=== PATIENT | male | born 1945 | race Caucasian/White ===

== ENCOUNTER 2024-07-06 19:32 | Emergency (ER) | payer MEDICARE ==
[2024-07-06 19:40] VITALS: TEMP 97.9
[2024-07-06 20:18] LABS: Basophils # (A) 0.03 10*3/uL (0.00-0.10); Basophils % (A) 0.4 %; Eosinophils % (A) 1.2 %; HCT 45.6 % (39.6-50.0); HGB 15.5 g/dL (13.0-17.0); Lymphocytes % (A) 6.2 %; MCH 31.6 pg (27.0-32.0); MCV 93.1 fL (80.0-97.0); Mean Platelet Volume 9.7 fL (9.5-12.2); Monocytes # (A) 0.64 10*3/uL (0.20-1.00); Monocytes % (A) 7.9 %; Neutrophils # (A) 6.84 10*3/uL (1.80-7.70); Neutrophils % (A) 84.1 %; Platelet Count 269 10*3/uL (140-440); RDW 13.4 % (11.5-14.5); WBC 8.13 10*3/uL (4.50-10.00)
[2024-07-06 20:28] LABS: ALT 20 U/L (4-49); AST 27 U/L (17-59); African American GFR (CKD) >90 (>60 ml/min/1.73 sqM); Albumin 4.8 g/dL (3.5-5.0); Alkaline Phosphatase 97 U/L (38-126); Anion Gap 15 mmol/L; Blood Urea Nitrogen 15 mg/dL (9-20); Calcium 9.2 mg/dL (8.4-10.2); Carbon Dioxide 22 mmol/L (22-30); Chloride 101 mmol/L (98-107); Creatine Kinase 79 U/L (55-170); Glucose 99 mg/dL (74-99); Non-African American GFR(CKD) 89 (>60 ml/min/1.73 sqM); Potassium 4.1 mmol/L (3.5-5.1); Sodium 138 mmol/L (137-145); Total Bilirubin 0.8 mg/dL (0.2-1.3); Total Protein 7.7 g/dL (6.3-8.2)
[2024-07-06 20:32] LABS: INR 0.9 (<1.2); Partial Thromboplastin Time 22.9 sec (22.0-30.0); Prothrombin Time 10.3 sec (10.0-12.5)
[2024-07-06] MEDS: SODIUM CHLORIDE 0.9% 1,000 ML IV STA (20:35)
--- NOTE | 2024-07-06 20:49 | CT ---
EXAMINATION TYPE: CT brain wo con DATE OF EXAM: 07/06/2024 8:37 PM COMPARISON: None CLINICAL INDICATION: Male, 79 years old with history of Neuro deficit, acute, stroke suspected, Left side weakness, onset 1800. No symptoms at this time. TECHNIQUE: Brain: Axial CT images of the brain were obtained with coronal and sagittal reformats created and rev iewed. Contrast used: None. Oral contrast used: None. CT DLP: 1702.8 mGycm, Automated exposure control for dose reduction was used. FINDINGS: Brain: Extra-axial spaces: No abnormal extra-axial fluid collections. Ventricular system: Dilatation in proportion to cerebral atrophy. 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 Cerebral atrophy. No acute intraparenchymal hemorrhage or mass effect. The remainder of the luna-white junctions are w ell differentiated. Scattered hypoattenuating areas are seen within the white matter. Cerebellum: Unremarkable. Mass effect: No evidence of midline shift. Intracranial vasculature: Atherosclerotic calcifications of the intracranial vessels. Soft tissues: Normal. Calvarium/osseous structures: No depressed skull fracture. Paranasal sinuses and mastoid air cells: Mild scattered paranasal sinus disease. Visualized orbits: Bilateral aphakia IMPRESSION: 1. No acute intracranial process. 2. Remote left temporal lobe injury. 3. nonspecific white matter changes likely secondary to chronic microangiopathy. [facility], , 07/06/2024 8:47 PM
--- NOTE | 2024-07-06 21:05 | CT ---
EXAMINATION TYPE: CT angio head neck DATE OF EXAM: 07/06/2024 8:39 PM COMPARISON: CT brain same date. CLINICAL INDICATION: Male, 79 years old with history of Neuro deficit, acute, stroke suspected; PHH, Left side weakness, onset 1800. No symptoms at this time. TECHNIQUE: Axially acquired helical CT angiogram of the head and neck was obtained with contrast. Axi al images are supplemented with 3D reconstructions and MIP images which were post-processed at an in dependent workstation. NASCET criteria used. Contrast used:65 ml mL of Isovue 370 with IV Contrast, Oral contrast used: None. CT DLP: 471.8 mGycm, Automated exposure control for dose reduction was used. FINDINGS: CTA HEAD: No evidence of acute intracranial hemorrhage, mass effect, or midline shift. The ventricles, sulci, a nd cisterns are unremarkable. Bilaterally aphakia. Vertebral arteries: The vertebral arteries are patent. Vertebral artery dominance: Codominant Basilar artery: The basilar artery is intact. The basilar artery bifurcation is normal. Internal Carotid arteries: The cervical, petrous, cavernous and supraclinoid segments are normal. KAMAR: Patent with no evidence of aneurysm. 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 MCA: Patent with no evidence of aneurysm. DIRECTOR GRAPHICS: Patent with no evidence of aneurysm. PCOM: Hypoplastic bilaterally. Dural sinuses: Patent. CTA NECK: Right Carotid System: The common carotid artery and external carotid artery are patent. The carotid bifurcation demonstrate s no evidence of hemodynamically significant stenosis. The remaining portions of the internal carotid artery demonstrate normal size without significant narrowing. Left Carotid System: The common carotid artery and external carotid artery are patent. The carotid bifurcation demonstrate s no evidence of hemodynamically significant stenosis. The remaining portions of the internal carotid artery demonstrate normal size without significant narrowing. Vertebral arteries are patent without evidence hemodynamically significant stenosis. There is a three-vessel aortic arch. The origins of the great vessels are patent. No evidence of hemo dynamically significant stenosis. Upper thorax: Mild to moderate centrilobular emphysema changes IMPRESSION: 1. No evidence of dissection of the cervical internal carotid arteries or vertebral arteries. 2. No any evidence of significant stenosis at the carotid bifurcations. 3. No evidence of intracranial high-grade stenosis . 4. 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
--- NOTE | 2024-07-06 21:11 | XR ---
EXAMINATION TYPE: XR chest 2V DATE OF EXAM: 07/06/2024 8:53 PM COMPARISON: None CLINICAL INDICATION: Male, 79 years old with history of altered mental status; TECHNIQUE: XR chest 2V Frontal and lateral views of the chest. FINDINGS: Lungs/Pleura: There is flattening of the diaphragm with increased lucency of the lungs. No evidence o f pneumothorax, pleural effusion or focal consolidation. Pulmonary vascularity: Unremarkable. Heart/mediastinum: Cardiomediastinal silhouette is unremarkable. Musculoskeletal: No acute osseous pathology. IMPRESSION: 1. No acute cardiopulmonary disease process. 2. COPD changes. [facility], , 07/06/2024 9:09 PM
--- NOTE | 2024-07-06 21:52 | ED ---
General Adult HPI - General Chief complaint: Neuro Symptoms/Deficit Stated complaint: L sided heaviness Time Seen by Provider: 07/06/24 19:45 Source: patient, RN notes reviewed, old records reviewed Mode of arrival: ambulatory Limitations: no limitations - History of Present Illness Initial comments: Patient is a 79-year-old male who presents emergency department complaining of left-sided numbness and heaviness of the arm and face as well as some slurred speech. Has had 2 or 3 transient episodes of this since 6 PM. Presents at approximately 1930 for further evaluation. Currently has no symptoms. Presents with his daughter. Has a history of hypertension hyperlipidemia with intermittent compliance with medications. Denies any chest pain or shortness of breath. Has no acute complaints at this time. Is not on blood thinners. Den ies head injury. Presents for further evaluation at this time. - Related Data Allergies Allergy/AdvReac Type Severity Reaction Status Date / Time Sulfa (Sulfonamide Allergy Anaphylaxis Verified 07/06/24 19:34 Antibiotics) Review of Systems ROS Statement: Those systems with pertinent positive or pertinent negative responses have been documented in the HPI. Review of Systems: CONST: Denies fever EYES: Denies blurry vision ENT: Denies nasal congestion C/V: Denies Chest pain RESP: Denies shortness of breath GI: Denies abdominal pain : Denies dysuria SKIN: Denies rash. MSK: Denies joint pain. NEURO: Denies headache ROS Other: All systems not noted in ROS Statement are negative. Past Medical History Past Medical History: Cancer, Hyperlipidemia, Hypertension Additional Past Medical History / Comment(s): prostate CA History of Any Multi-Drug Resistant Organisms: None Reported Past Surgical History: Prostate Surgery Past Psychological History: No Psychological Hx Reported Smoking Status: Current every day smoker Past Alcohol Use History: None Reported Past Drug Use History: None Reported General Exam - General Exam Comments Initial Comments: General: Appears in no acute distress. HEAD: Normal with no signs of head trauma. EYES: PERRLA, EOMI, conjunctiva normal, no discharge. Pupils are 2 mm and equal bilaterally. ENT: Hearing grossly intact, normal oropharynx. RESPIRATORY: Clear breath sounds bilaterally. No wheezes, rales, or rhonchi. C/V: Regular rate and rhythm. S1 and S2 auscultated, no edema, peripheral pulses 2+ and intact throughout ABD: Abd is soft, nontender, nondistended EXT: Normal range of motion, no obvious deformity SKIN: No rashes or lesions observed on exposed skin. NEURO: Alert and oriented x 4. NIH of 0. GCS of 15. No focal deficits currently. Limitations: no limitations Course Vital Signs 07/06/24 07/06/24 07/06/24 19:35 20:35 21:00 Temperature 97.9 F Pulse Rate 104 H 91 90 Respiratory 18 18 16 Rate Blood Pressure 194/113 162/94 179/90 O2 Sat by Pulse 95 100 97 Oximetry Medical Decision Making - Medical Decision Making Was pt. sent in by a medical professional or institution (, PA, FLAT BREAKDOWN PROCESSOR, urgent care, hospital, or prison...) When possible be specific @ -No Did you speak to anyone other than the patient for history (EMS, parent, family, police, friend...)? What history was obtained from this source @ -Patient's daughter corroborated the story and did witness the episodes. Did you review nursing and triage notes (agree or disagree)? Why? @ -I reviewed and agree with nursing and triage notes Were old charts reviewed (outside hosp., previous admission, EMS record, old EKG, old radiological studies, urgent care reports/EKG's, prison records)? Report findings @ -No old charts were reviewed Differential Diagnosis (chest pain, altered mental status, abdominal pain women, abdominal pain men, vaginal bleeding, weakness, fever, dyspnea, syncope, headache, dizziness, GI bleed, back pain, seizure, CVA, palpatations, mental health, musculoskeletal)? @ -Differential CVA Ischemic stroke, hemorrhagic stroke, brain tumor, atypical migraine, Wernicke's encephalopathy, seizure, multiple sclerosis, meningitis, encephalitis, hypoglycemia, Guillain-Mendez, electrolytes disturbance, myasthenia gravis.... This is not meant to be an all-inclusive list EKG interpreted by me (3pts min.). @ -As above X-rays interpreted by me (1pt min.). @ -Chest x-ray reveals no obvious acute cardiopulmonary process. CT interpreted by me (1pt min.). @ -CT brain reveals no obvious acute intracranial process. CT angiogram of the head and neck reveals no obvious acute carotid abnormality. Patient does have a saccular aneurysm measuring 3 x 3 x 3 mm of the right anterior communicating artery. No evidence of other large vessel occlusion or abnormality. U/S interpreted by me (1pt. min.). @ -None done What testing was considered but not performed or refused? (CT, X-rays, U/S, labs)? Why? @ -None What meds were considered but not given or refused? Why? @ -Considered tenecteplase but as patient has waxing waning symptoms, is currently symptom-free, and originally presented with no symptoms, risks far outweigh the benefits. Dr. Kruger of neurocritical care agreed. Did you discuss the management of the patient with other professionals (professionals i.e. , PA, FLAT BREAKDOWN PROCESSOR, lab, RT, psych nurse, social secretary, mineral engineer, teacher, driver's license reviewing officer, case management assistant)? Give summary @ -Discussed the patient with Dr. Kruger of neurocritical care after imaging had returned and after patient had a transient episode of his left upper extremity weakness with drift as well as dysarthria that was transient for approximately 3 minutes. We discussed the images and the symptoms and as he is currently symptom-free he recommended transfer to [facility]. Recommended aspirin and Plavix loading. Was in agreement with no tenecteplase at this time. Recommended permissive hypertension. I reached out to [facility] and patient was accepted by Dr. Phillips. Was smoking cessation discussed for >3mins.? @ -No Was critical care preformed (if so, how long)? @ -Yes, 36 minutes Were there social determinants of health that impacted care today? How? (Homelessness, low income, unemployed, alcoholism, drug addiction, transp ortation, low edu. Level, literacy, decrease access to med. care, longterm, rehab)? @ -No Was there de-escalation of care discussed even if they declined (Discuss DNR or withdrawal of care, Hospice)? DNR status @ -No What co-morbidities impacted this encounter? (DM, HTN, Smoking, COPD, CAD, Cancer, CVA, ARF, Chemo, Hep., AIDS, mental health diagnosis, sleep apnea, morbid obesity)? @ -Hypertension, hyperlipidemia Was patient admitted / discharged? Hospital course, mention meds given and route, prescriptions, significant lab abnormalities, going to OR and other pertinent info. @ -Based on the patient's presentation and physical exam, presents emergency department complaining of strokelike symptoms. Currently symptom-free. NIH of 0. Symptoms originally began at 6 PM this evening. I evaluated the patient shortly after 730pm. NIH is currently 0. Patient is not a tenecteplase candidate as NIH is 0 and risks outweigh the benefits. Patient has not made a code stroke however we will work the patient up as a stroke patient. He was in agreement this plan. Vitals remarkable for mild hypertension. CT imaging returned remarkable for a right 3 x 3 x 3 mm saccular aneurysm of the right KAMAR but no other obvious acute intracranial process. Chest x-ray unremarkable. Laboratory studies are all within acceptable limits. As I was reaching out to Dr. Kruger of neurocritical care to discuss the findings of the CT imaging as well as his symptoms, I updated the patient and he was having one of his transient episodes that lasted for approximately 1 minute prior to my arrival and 1 to 2 minutes while he was performing an NIH stroke scale. Patient had an NIH of approximately 3 for numbness of the left upper extremity, left upper extremity weakness with drift, as well as some mild dysar thria. However all symptoms resolved. Once again become an NIH of 0. I discussed this with Dr. Kruger and he recommends transfer to [facility] for closer observation. Recommended loading with aspirin and Plavix. Was in agreement with no tenecteplase at this time. Once again, NIH of 0 currently. I discussed this with the patient and he was in agreement the plan. Was in agreement with permissive hypertension for now. I reached out to [facility] and patient was accepted by Dr. Phillips. Patient transferred in stable condition. Undiagnosed new problem with uncertain prognosis? @ -No Drug Therapy requiring intensive monitoring for toxicity (Heparin, Nitro, Insulin, Cardizem)? @ -No Were any procedures done? @ -No Diagnosis/symptom? @ -Transient neurological symptoms, suspecting TIAs, right KAMAR aneurysm Acute, or Chronic, or Acute on Chronic? @ -Acute Uncomplicated (without systemic symptoms) or Complicated (systemic symptoms)? @ -Complicated Side effects of treatment? @ -No Exacerbation, Progression, or Severe Exacerbation? @ -No Poses a threat to life or bodily function? How? (Chest pain, USA, ND, pneumonia, PE, COPD, DKA, ARF, appy, cholecystitis, CVA, Diverticulitis, Homicidal, Suicidal, threat to staff... and all critical care pts) @ -Yes - Lab Data Result diagrams: 07/06/24 20:13 07/06/24 20:13 Lab Results 07/06/24 07/06/24 07/06/24 Range/Units 20:13 20:13 20:13 WBC 8.13 (4.50-10.00) 10*3/uL RBC 4.90 (4.40-5.60) 10*6/uL Hgb 15.5 (13.0-17.0) g/dL Hct 45.6 (39.6-50.0) % MCV 93.1 (80.0-97.0) fL MCH 31.6 (27.0-32.0) pg MCHC 34.0 (32.0-37.0) g/dL Plt Count 269 (140-440) 10*3/uL MPV 9.7 (9.5-12.2) fL Immature Gran % (Auto) 0.2 % Neutrophils % 84.1 % Lymphocytes % 6.2 % Monocytes % 7.9 % Eosinophils % 1.2 % Basophils % 0.4 % Immature Gran # 0.02 (0.00-0.04) 10*3/uL Neutrophils # 6.84 (1.80-7.70) 10*3/uL Lymphocytes # 0.50 L (0.90-5.00) 10*3/uL Monocytes # 0.64 (0.20-1.00) 10*3/uL Eosinophils # 0.10 (0.04-0.35) 10*3/uL Basophils # 0.03 (0.00-0.10) 10*3/uL PT 10.3 (10.0-12.5) sec INR 0.9 (<1.2) APTT 22.9 (22.0-30.0) sec Sodium 138 (137-145) mmol/L Potassium 4.1 (3.5-5.1) mmol/L Chloride 101 (98-107) mmol/L Carbon Dioxide 22 (22-30) mmol/L Anion Gap 15 mmol/L BUN 15 (9-20) mg/dL Creatinine 0.75 (0.66-1.25) mg/dL Est GFR (CKD-EPI)AfAm >90 (>60 ml/min/1.73 sqM) Est GFR (CKD-EPI)NonAf 89 (>60 ml/min/1.73 sqM) Glucose 99 (74-99) mg/dL Calcium 9.2 (8.4-10.2) mg/dL Total Bilirubin 0.8 (0.2-1.3) mg/dL AST 27 (17-59) U/L ALT 20 (4-49) U/L Alkaline Phosphatase 97 (38-126) U/L Creatine Kinase 79 (55-170) U/L Troponin I (0.000-0.034) ng/mL Total Protein 7.7 (6.3-8.2) g/dL Albumin 4.8 (3.5-5.0) g/dL 07/06/24 Range/Units 20:13 WBC (4.50-10.00) 10*3/uL RBC (4.40-5.60) 10*6/uL Hgb (13.0-17.0) g/dL Hct (39.6-50.0) % MCV (80.0-97.0) fL MCH (27.0-32.0) pg MCHC (32.0-37.0) g/dL Plt Count (140-440) 10*3/uL MPV (9.5-12.2) fL Immature Gran % (Auto) % Neutrophils % % Lymphocytes % % Monocytes % % Eosinophils % % Basophils % % Immature Gran # (0.00-0.04) 10*3/uL Neutrophils # (1.80-7.70) 10*3/uL Lymphocytes # (0.90-5.00) 10*3/uL Monocytes # (0.20-1.00) 10*3/uL Eosinophils # (0.04-0.35) 10*3/uL Basophils # (0.00-0.10) 10*3/uL PT (10.0-12.5) sec INR (<1.2) APTT (22.0-30.0) sec Sodium (137-145) mmol/L Potassium (3.5-5.1) mmol/L Chloride (98-107) mmol/L Carbon Dioxide (22-30) mmol/L Anion Gap mmol/L BUN (9-20) mg/dL Creatinine (0.66-1.25) mg/dL Est GFR (CKD-EPI)AfAm (>60 ml/min/1.73 sqM) Est GFR (CKD-EPI)NonAf (>60 ml/min/1.73 sqM) Glucose (74-99) mg/dL Calcium (8.4-10.2) mg/dL Total Bilirubin (0.2-1.3) mg/dL AST (17-59) U/L ALT (4-49) U/L Alkaline Phosphatase (38-126) U/L Creatine Kinase (55-170) U/L Troponin I <0.012 (0.000-0.034) ng/mL Total Protein (6.3-8.2) g/dL Albumin (3.5-5.0) g/dL - EKG Data -: EKG Interpreted by Me EKG Comments: 12-lead Electrocardiogram Interpretation Note EKG was reviewed and interpreted by myself. 12-lead ECG performed at 1946 is interpreted by me as revealing normal sinus rhythm at a rate of 95 beats per minute. Right bundle branch block. Indeterminate axis. OR interval is 190 ms, QRS duration is 162 ms, QTc is 443 ms.. There were no ST or T wave abnormalities to suggest myocardial ischemia or injury. R wave progression across the precordium was satisfactory. By my interpretation this EKG is non- diagnostic for acute ischemia. Critical Care Time Critical Care Time: Yes Total Critical Care Time: 36 Disposition Clinical Impression: Transient neurological symptoms, TIA (transient ischemic attack), Intracranial aneurysm Disposition: OTHER INSTITUTION NOT DEFINED Condition: Serious Referrals: None,Stated [Primary Care Provider] - 1-2 days Time of Disposition: 21:45 - Out of Hospital Transfer - Req. Specs Out of Hospital Transfer - Requested Specifics: Other Emergency Center (Transferred to [facility] per Dr. Kruger for admission and observation for transient TIAs)
[2024-07-06] MEDS: CLOPIDOGREL 75 MG TAB PO STA (21:59)
[2024-07-06] MEDS: ASPIRIN 325 MG TAB PO STA (21:59)
[2024-07-06 22:29] VITALS: BP 191/104; PULSE 92; RESP 18
== END 2024-07-06 22:00 | disposition other institution (70) ==
LOC: EC 19:32
DX: G45.9 Transient cerebral ischemic attack, unspecified (principal); I67.1 Cerebral aneurysm, nonruptured; E78.5 Hyperlipidemia, unspecified; I10 Essential (primary) hypertension; F17.200 Nicotine dependence, unspecified, uncomplicated; Z88.2 Allergy status to sulfonamides
CPT/HCPCS: 36415; 93005; 80053; 82550; 84484; 85025; 85610; 85730; 71046; 70496; 70450; 70498; 99291; 96360; Q9967